=== PATIENT | female | born 1995 | race Caucasian/White ===

== ENCOUNTER → 2021-02-17 | Day surgery (SDC) | payer OTHER ==
[~2021-02-17] MED LIST: COLACE100 MG PO; HYDROCODON-ACE1 EAC4 PO; MELATONIN5 M2 PO; PRISTIQ ER50 MG PO; SPRINTEC 28 DA1 EACH PO; STRATTERA40 MG PO
== END | disposition home or self-care (01) ==
LOC: OR 07:30
DX: K81.1 Chronic cholecystitis (principal); K82.8 Other specified diseases of gallbladder; K21.9 Gastro-esophageal reflux disease without esophagitis; F41.9 Anxiety disorder, unspecified; Z87.891 Personal history of nicotine dependence; Z79.899 Other long term (current) drug therapy; Z20.822 Contact with and (suspected) exposure to COVID-19
CPT/HCPCS: 84703; J0690; J1100; J1170; J1885; J2001; J2250; J2405; J2704; J2710; J3010; J7030; J7120